=== PATIENT | female | born 1945 | race Caucasian/White ===

== ENCOUNTER → 2017-10-21 | Outpatient (CLI) | payer MEDICARE, OTHER ==
[~2017-10-21] MED LIST: ALEN70TA5 PO; ASPI-496 PO; ESTR0.5T PO; FLUT9.9S NS; HYDR-3237 PO; IBUP-1223 PO; LISI5TAB7 PO; LOSA1TAB19 PO; TIZA4CAP PO
[2017-10-21 11:42] LABS: HEMATOCRIT 44.4 % (34.6-47.8); HEMOGLOBIN 15.3 g/dL (11.7-16.4); WHITE BLOOD COUNT 5.9 x10^3/uL (3.4-10)
[2017-10-21 11:58] LABS: BLOOD UREA NITROGEN 14 mg/dL (7-18)
[2017-10-21 12:03] LABS: ASPARTATE AMINO TRANSFERASE 21 U/L (15-37)
[2017-10-21 12:23] LABS: HIV 1&2 ANTIBODY SCREEN Nonreactive (Nonreactive); HIV-1 p24 ANTIGEN Nonreactive (Nonreactive)
== END | disposition home or self-care (01) ==
LOC: STAR 10:03
PROVIDERS: ATTEND Orthopaedic Surgery
DX: Z01.818 Encounter for other preprocedural examination (principal); M17.12 Unilateral primary osteoarthritis, left knee; R94.31 Abnormal electrocardiogram [ECG] [EKG]; M81.0 Age-related osteoporosis without current pathological fracture; Z79.899 Other long term (current) drug therapy; R79.1 Abnormal coagulation profile
CPT/HCPCS: 36415; 80053; 83036; 85025; 85610; 85730; 86703; 87081; 87899; 93005; G0435

== ENCOUNTER 2017-12-22 11:42 | Emergency (ER) | payer MEDICARE, OTHER ==
[~2017-12-22] VITALS: Ht 166.4 cm; Wt 93.7 kg
[2017-12-22] MEDS ORDERED: LIDOCAINE-MPF 1%, 5ML INFIL ONE (12:00)
[2017-12-22 15:41] VITALS: BP 165/100
[2017-12-23] MEDS ORDERED: ZINC50CA PO (09:56)
[2017-12-23] MEDS ORDERED: focus factor PO (09:56)
[2017-12-23] MEDS ORDERED: VITA150T PO (09:56)
[2017-12-23] MEDS ORDERED: CHOL200024 PO (09:56)
[2017-12-23] MEDS ORDERED: SENN1TAB67 PO (09:56)
[2017-12-23] MEDS ORDERED: POTA99TA3 PO (09:56)
[2017-12-23] MEDS ORDERED: OMEG-123 PO (09:56)
[2017-12-23] MEDS ORDERED: OMEP-110 PO (09:56)
[2017-12-23] MEDS ORDERED: CALC1WAF PO (09:56)
[2017-12-23] MEDS ORDERED: DOXY25TA45 PO (09:56)
[2017-12-23] MEDS ORDERED: VITA400T6 PO (09:56)
[2017-12-23] MEDS ORDERED: SULF1TAB24 PO (10:07)
[2017-12-23] MEDS ORDERED: CEPH-376 PO (10:07)
== END 2017-12-22 15:43 | disposition home or self-care (01) ==
LOC: ED 14:40
DX: L03.311 Cellulitis of abdominal wall (principal); L02.211 Cutaneous abscess of abdominal wall; I10 Essential (primary) hypertension; Z90.710 Acquired absence of both cervix and uterus
CPT/HCPCS: 10060; 99283

== ENCOUNTER → 2017-12-23 | Outpatient (CLI) | payer MEDICARE, OTHER ==
[~2017-12-23] MED LIST changes: +CALC1WAF PO; +CEPH-376 PO; +CHOL200024 PO; +DOXY25TA45 PO; +OMEG-123 PO; +OMEP-110 PO; +POTA99TA3 PO; +SENN1TAB67 PO; +SULF1TAB24 PO; +VITA150T PO; +VITA400T6 PO; +ZINC50CA PO; +focus factor PO
[2017-12-23 10:39] LABS: BASOPHILS # (AUTO) 0.03 x10^3/uL (0-0.1); BASOPHILS % (AUTO) 1 % (0-1); EOSINOPHILS # (AUTO) 0.06 x10^3/uL (0-0.4); EOSINOPHILS % (AUTO) 1 % (1-7); LYMPHOCYTES # (AUTO) 0.89 x10^3/uL (1-3.4); LYMPHOCYTES % (AUTO) 16 % (22-44); MD NO; MEAN CORPUSCULAR HEMOGLOBIN 32.7 pg (27.0-34.8); MEAN CORPUSCULAR HGB CONC 34.8 g/dL (32.4-35.8); MEAN CORPUSCULAR VOLUME 94.1 fL (80-100); MEAN PLATELET VOLUME 7.8 fL (7.4-10.4); MONOCYTES # (AUTO) 0.44 x10^3/uL (0.2-0.8); MONOCYTES % (AUTO) 8 % (2-9); NEUTROPHILS # (AUTO) 4.11 x10^3/uL (1.8-6.8); NEUTROPHILS % (AUTO) 74 % (42-75); PLATELET COUNT 232 x10^3/uL (130-400); RED BLOOD COUNT 4.44 x10^6/uL (3.82-5.3); RED CELL DISTRIBUTION WIDTH 13.1 % (9.6-15.2)
[2017-12-23 10:40] LABS: INTERNATIONAL NORMALIZED RATIO 0.94 (0.93-1.1); PROTHROMBIN TIME 9.7 Seconds (9.6-11.5)
[2017-12-23 10:44] LABS: ALBUMIN 3.9 g/dL (3.4-5.0); ANION GAP 7 mmol/L (5-15); CALCIUM 9.2 mg/dL (8.5-10.1); CHLORIDE 98 mmol/L (98-107)
[2017-12-23 10:48] LABS: ALANINE AMINOTRANSFERASE 27 U/L (12-78); ALKALINE PHOSPHATASE 80 U/L (45-117); BILIRUBIN,TOTAL 0.6 mg/dL (0.2-1.0); CREATININE 0.66 mg/dL (0.55-1.02); TOTAL PROTEIN 7.4 g/dL (6.4-8.2)
[2017-12-23 12:00] LABS: HEMOGLOBIN A1C 5.3 % (4.2-6.3)
== END | disposition home or self-care (01) ==
LOC: STAR 09:16
PROVIDERS: ATTEND Orthopaedic Surgery
DX: Z01.818 Encounter for other preprocedural examination (principal); M17.12 Unilateral primary osteoarthritis, left knee
CPT/HCPCS: 36415; 80053; 83036; 85025; 85610; 85730; 86703; 87081; 87899; G0435

== ENCOUNTER → 2018-02-25 | Outpatient (CLI) | payer MEDICARE, OTHER ==
[2018-02-25 11:06] LABS: BASOPHILS # (AUTO) 0.03 x10^3/uL (0-0.1); BASOPHILS % (AUTO) 1 % (0-1); EOSINOPHILS % (AUTO) 2 % (1-7); LYMPHOCYTES # (AUTO) 1.03 x10^3/uL (1-3.4); LYMPHOCYTES % (AUTO) 19 % (22-44); MD NO; MEAN CORPUSCULAR HEMOGLOBIN 32.4 pg (27.0-34.8); MEAN CORPUSCULAR HGB CONC 34.4 g/dL (32.4-35.8); MEAN CORPUSCULAR VOLUME 94.2 fL (80-100); MEAN PLATELET VOLUME 7.5 fL (7.4-10.4); MONOCYTES # (AUTO) 0.45 x10^3/uL (0.2-0.8); MONOCYTES % (AUTO) 8 % (2-9); NEUTROPHILS # (AUTO) 3.79 x10^3/uL (1.8-6.8); NEUTROPHILS % (AUTO) 70 % (42-75); PLATELET COUNT 268 x10^3/uL (130-400); RED BLOOD COUNT 4.44 x10^6/uL (3.82-5.3); RED CELL DISTRIBUTION WIDTH 12.8 % (9.6-15.2)
[2018-02-25 11:09] LABS: CULTURE INDICATED? NO; MICROSCOPIC NOT IND
[2018-02-25 11:13] LABS: INTERNATIONAL NORMALIZED RATIO 0.94 (0.93-1.1); PROTHROMBIN TIME 9.7 Seconds (9.6-11.5)
[2018-02-25 11:17] LABS: ALBUMIN 3.9 g/dL (3.4-5.0); ANION GAP 6 mmol/L (5-15); CALCIUM 9.3 mg/dL (8.5-10.1); CHLORIDE 100 mmol/L (98-107)
[2018-02-25 11:19] LABS: ALANINE AMINOTRANSFERASE 30 U/L (12-78); ALKALINE PHOSPHATASE 64 U/L (45-117); BILIRUBIN,TOTAL 0.9 mg/dL (0.2-1.0); CREATININE 0.59 mg/dL (0.55-1.02); TOTAL PROTEIN 7.5 g/dL (6.4-8.2)
[2018-02-25 12:07] LABS: HEMOGLOBIN A1C 5.3 % (4.2-6.3)
== END ==
LOC: STAR 10:00
PROVIDERS: ATTEND Orthopaedic Surgery
DX: R94.31 Abnormal electrocardiogram [ECG] [EKG] (principal); M17.11 Unilateral primary osteoarthritis, right knee
CPT/HCPCS: 36415; 80053; 81003; 83036; 85025; 85610; 85730; 87081; 87806; 93005; G0475

== ENCOUNTER 2018-03-08 09:34 | Inpatient (IN) | payer MEDICARE, OTHER ==
[2018-02-25 10:36] VITALS: BP 152/94
[~2018-03-08] VITALS: Ht 166.4 cm; Wt 98.1 kg
[~2018-03-08 09:34] MED LIST changes: +CEFAZOLIN 1,000 MG ONE; +DEXAMETHASONE 4 MG/ML, 1ML ONE; +EPINEPHRINE 1 MG/ML, 1ML ONE; +FENTANYL PF 250 MCG/5ML ONE; +GLYCOPYRROLATE 0.4 MG/2 ML, 2ML ONE; +KETOROLAC 60 MG/2 ML ONE; +MIDAZOLAM 1 MG/ML, 2ML ONE; +NEOSTIGMINE 1 MG/ML, 10ML ONE; +PROPOFOL 10 MG/ML, 20ML ONE; +ROCURONIUM 10MG/ML,5ML ONE; +ROPIvacaine/PF 0.2%, 20 ML ONE; +SODIUM CHLORIDE 0.9% 100 ML ONE; +TRANEXAMIC ACID 100 MG/ML, 10ML ONE; +VANCOMYCIN 1,000 MG ONE; +WATER-INJECTION,STERILE 10 ML IV ONE
[2018-03-08] MEDS ORDERED: VANCOMYCIN PER PHARMACY MC ONE (09:40)
[2018-03-08] MEDS ORDERED: LACTATED RINGERS 1,000 ML IV SCH (09:47)
[2018-03-08] MEDS ORDERED: GABAPENTIN 300 MG CAPSULE PO ONE (10:00)
[2018-03-08] MEDS ORDERED: ACETAMINOPHEN 500 MG TABLET PO ONE (10:00)
[2018-03-08] MEDS ORDERED: ONDANSETRON ODT 8 MG PO ONE (10:00)
[2018-03-08] MEDS ORDERED: OxyconTIN ER 10 MG TAB.ER PO ONE (10:00)
[2018-03-08] MEDS ORDERED: LIDOCAINE-MPF 1%, 2ML INFIL ONE (10:00)
[2018-03-08] MEDS ORDERED: VANCOMYCIN 1,700 MG in SODIUM CHLORIDE 0.9% 250 ML IV ONE (10:30)
[2018-03-08] MEDS ORDERED: KETOROLAC 60 MG/2 ML ONE (11:24)
[2018-03-08] MEDS ORDERED: TRANEXAMIC ACID 100 MG/ML, 10ML ONE ×4 (11:24)
[2018-03-08] MEDS ORDERED: ROPIvacaine/PF 0.2%, 20 ML ONE (11:24)
[2018-03-08] MEDS ORDERED: VANCOMYCIN 1,000 MG ONE (11:25)
[2018-03-08] MEDS ORDERED: SODIUM CHLORIDE 0.9% 100 ML ONE (11:25)
[2018-03-08] MEDS ORDERED: EPINEPHRINE 1 MG/ML, 1ML ONE (11:25)
[2018-03-08] MEDS ORDERED: PROMETHAZINE 12.5 MG SUPP PR PRN (11:30)
[2018-03-08] MEDS ORDERED: LABETALOL 5MG/ML, 20ML IV PRN (11:30)
[2018-03-08] MEDS ORDERED: MEPERIDINE/PF 25MG/0.5ML IVPush PRN (11:30)
[2018-03-08] MEDS ORDERED: HYDROmorphone 1 MG/ML, 1ML IV PRN ×2 (11:30→12:00)
[2018-03-08] MEDS ORDERED: morphine SULFATE 10 MG/ML, 1ML IV PRN (11:30)
[2018-03-08] MEDS ORDERED: PROMETHAZINE 25 MG/ML, 1ML IV PRN (11:30)
[2018-03-08] MEDS ORDERED: ONDANSETRON 2MG/ML, 2ML IVPush PRN (11:30)
[2018-03-08] MEDS ORDERED: OXYcodone 5 MG/5 ML ORAL.SOL UDC PO PRN (11:30)
[2018-03-08] MEDS ORDERED: hydrALAzine 20 MG/ML, 1ML IV PRN (11:30)
[2018-03-08] MEDS ORDERED: ACETAMINOPHEN 650 MG/20.3 ML UDC PO PRN (12:00)
[2018-03-08] MEDS ORDERED: ONDANSETRON 2MG/ML, 2ML IV PRN (12:00)
[2018-03-08] MEDS ORDERED: ALUMINUM/MAG/SIMETHICONE 30 ML UDC PO PRN (12:00)
[2018-03-08] MEDS ORDERED: SENNA/DOCUSATE TABLET PO PRN (12:00)
[2018-03-08] MEDS ORDERED: MAGNESIUM HYDROXIDE 8%, 30ML UDC PO PRN (12:00)
[2018-03-08] MEDS ORDERED: ONDANSETRON 4 MG TABLET PO PRN (12:00)
[2018-03-08] MEDS ORDERED: DIPHENHYDRAMINE 25 MG CAPSULE PO PRN (12:00)
[2018-03-08] MEDS ORDERED: DIAZEPAM 5 MG TABLET PO PRN (12:00)
[2018-03-08] MEDS ORDERED: FENTANYL PF 100 MCG/2ML ONE ×2 (12:13→14:12)
[2018-03-08] MEDS ORDERED: LABETALOL 5MG/ML, 20ML ONE (12:30)
[2018-03-08] MEDS ORDERED: TRANEXAMIC ACID 1,000 MG in SODIUM CHLORIDE 0.9% 100 ML IVPB ONE (13:30)
[2018-03-08] MEDS ORDERED: OXYcodone 5 MG/5 ML ORAL.SOL UDC ONE (14:13)
[2018-03-08] MEDS: FENTANYL PF 100 MCG/2ML IV PRN ×2 (14:15→14:38)
[2018-03-08] MEDS: D5%-0.45NACL+KCL 20MEQ 1,000 ML IV SCH (16:43)
[2018-03-08] MEDS: CEFAZOLIN PMX 1GM/50ML 50 ML IVPB SCH (20:10)
[2018-03-08 20:26] VITALS: BP 111/75
[2018-03-08] MEDS: DOCUSATE 100 MG CAPSULE PO SCH (20:37)
[2018-03-08] MEDS: OXYcodone IR 5MG TABLET PO PRN (22:27)
[2018-03-08] MEDS ORDERED: VANCOMYCIN PMX 1GM/200ML 200 ML IVPB SCH (22:30)
[2018-03-09 00:10] VITALS: BP 103/59
[2018-03-09] MEDS: D5%-0.45NACL+KCL 20MEQ 1,000 ML IV SCH (02:35)
[2018-03-09] MEDS: CEFAZOLIN PMX 1GM/50ML 50 ML IVPB SCH (04:04)
[2018-03-09] MEDS: OXYcodone IR 5MG TABLET PO PRN ×2 (04:04→08:13)
[2018-03-09 04:08] VITALS: BP 119/73
[2018-03-09] MEDS ORDERED: DEXAMETHASONE 4 MG/ML, 1ML IVPush SCH (06:00)
[2018-03-09] MEDS ORDERED: ASPIRIN 81 MG TABLET EC PO SCH (06:00)
[2018-03-09 07:34] VITALS: BP 145/85
[2018-03-09] MEDS: DOCUSATE 100 MG CAPSULE PO SCH (08:13)
[2018-03-09] MEDS ORDERED: TAMSULOSIN 0.4 MG CAP.ER.24H PO SCH (09:00)
[2018-03-09] MEDS ORDERED: ASPI-515 PO (09:32)
[2018-03-09] MEDS ORDERED: ONDA4TAB10 PO (09:34)
[2018-03-09] MEDS ORDERED: DOCU-131 PO (09:35)
[2018-03-09] MEDS ORDERED: CELE200C PO (09:36)
[2018-03-09] MEDS ORDERED: TRAM50TA2 PO (09:37)
[2018-03-09] MEDS ORDERED: DIAZ5TAB4 PO (09:39)
[2018-03-09] MEDS ORDERED: OXYC5TAB3 PO (09:45)
[2018-03-09] MEDS ORDERED: KETOROLAC 30 MG/1 ML IV SCH (12:00)
== END 2018-03-09 11:20 | disposition home or self-care (01) | DRG 470 ==
LOC: ORIP 09:34 → 4NOR 15:00 → DCLOUNGE 03-09 10:52
PROVIDERS: ADMIT Orthopaedic Surgery; ATTEND Orthopaedic Surgery
PROC: 0SRC069 Replacement of Right Knee Joint with Oxidized Zirconium on Polyethylene Synthetic Substitute, Cemented, Open Approach (ICD-10-PCS; principal; 2018-03-08 11:30)
DX: M17.11 Unilateral primary osteoarthritis, right knee (principal); Z91.048 Other nonmedicinal substance allergy status
CPT/HCPCS: 36415; 85014; 85018; C1713; J0171; J0690; J1100; J1885; J2250; J2704; J2710; J2795; J3010; J3370; Q0162; C1776; J3480; J7050; J7120

== ENCOUNTER → 2018-04-19 | Outpatient (CLI) | payer MEDICARE, OTHER ==
[~2018-04-19] MED LIST changes: +ASPI-515 PO; -CEFAZOLIN 1,000 MG ONE; +CELE200C PO; -DEXAMETHASONE 4 MG/ML, 1ML ONE; +DIAZ5TAB4 PO; +DOCU-131 PO; -EPINEPHRINE 1 MG/ML, 1ML ONE; -FENTANYL PF 250 MCG/5ML ONE; -GLYCOPYRROLATE 0.4 MG/2 ML, 2ML ONE; +IBUP-1221 PO; -KETOROLAC 60 MG/2 ML ONE; -MIDAZOLAM 1 MG/ML, 2ML ONE; -NEOSTIGMINE 1 MG/ML, 10ML ONE; +OMEG-172 PO; +ONDA4TAB10 PO; +OXYC5TAB3 PO; -PROPOFOL 10 MG/ML, 20ML ONE; -ROCURONIUM 10MG/ML,5ML ONE; -ROPIvacaine/PF 0.2%, 20 ML ONE; -SODIUM CHLORIDE 0.9% 100 ML ONE; +TRAM50TA2 PO; -TRANEXAMIC ACID 100 MG/ML, 10ML ONE; -VANCOMYCIN 1,000 MG ONE; -WATER-INJECTION,STERILE 10 ML IV ONE
[2018-04-19 10:16] LABS: BASOPHILS # (AUTO) 0.01 x10^3/uL (0-0.1); BASOPHILS % (AUTO) 0 % (0-1); EOSINOPHILS # (AUTO) 0.05 x10^3/uL (0-0.4); EOSINOPHILS % (AUTO) 1 % (1-7); LYMPHOCYTES # (AUTO) 0.77 x10^3/uL (1-3.4); LYMPHOCYTES % (AUTO) 11 % (22-44); MD NO; MEAN CORPUSCULAR HEMOGLOBIN 31.4 pg (27.0-34.8); MEAN CORPUSCULAR HGB CONC 33.5 g/dL (32.4-35.8); MEAN CORPUSCULAR VOLUME 93.9 fL (80-100); MEAN PLATELET VOLUME 7.8 fL (7.4-10.4); MONOCYTES # (AUTO) 0.37 x10^3/uL (0.2-0.8); MONOCYTES % (AUTO) 5 % (2-9); NEUTROPHILS # (AUTO) 5.56 x10^3/uL (1.8-6.8); NEUTROPHILS % (AUTO) 82 % (42-75); PLATELET COUNT 310 x10^3/uL (130-400); RED BLOOD COUNT 4.73 x10^6/uL (3.82-5.3); RED CELL DISTRIBUTION WIDTH 14.3 % (9.6-15.2)
[2018-04-19 10:17] LABS: MICROSCOPIC NOT IND
[2018-04-19 10:19] LABS: CULTURE INDICATED? NO
[2018-04-19 10:24] LABS: INTERNATIONAL NORMALIZED RATIO 0.93 (0.93-1.1); PROTHROMBIN TIME 9.6 Seconds (9.6-11.5)
[2018-04-19 10:28] LABS: ALANINE AMINOTRANSFERASE 33 U/L (12-78); ALBUMIN 4.3 g/dL (3.4-5.0); ANION GAP 8 mmol/L (5-15); CALCIUM 9.8 mg/dL (8.5-10.1); CHLORIDE 99 mmol/L (98-107); CREATININE 0.61 mg/dL (0.55-1.02)
[2018-04-19 10:30] LABS: ALKALINE PHOSPHATASE 101 U/L (45-117); BILIRUBIN,TOTAL 0.9 mg/dL (0.2-1.0); TOTAL PROTEIN 8.1 g/dL (6.4-8.2)
[2018-04-19 10:38] LABS: HEMOGLOBIN A1C 5.1 % (4.2-6.3)
== END ==
LOC: STAR 09:20
PROVIDERS: ATTEND Orthopaedic Surgery
DX: M17.10 Unilateral primary osteoarthritis, unspecified knee (principal); R79.89 Other specified abnormal findings of blood chemistry; Z96.653 Presence of artificial knee joint, bilateral
CPT/HCPCS: 36415; 80053; 81003; 83036; 85025; 85610; 85730; 87081; 87806; G0475

== ENCOUNTER 2018-04-26 07:23 | Inpatient (IN) | payer MEDICARE, OTHER ==
[~2018-04-26] VITALS: Ht 165.1 cm; Wt 92.4 kg
[~2018-04-26 07:23] MED LIST changes: +EPINEPHRINE 1 MG/ML, 1ML ONE; +KETOROLAC 60 MG/2 ML ONE; +ROPIvacaine/PF 0.2%, 20 ML ONE; +TRANEXAMIC ACID 100 MG/ML, 10ML ONE
[2018-04-26] MEDS ORDERED: VANCOMYCIN 1,700 MG in SODIUM CHLORIDE 0.9% 250 ML IV ONE (08:30)
[2018-04-26] MEDS ORDERED: VANCOMYCIN PER PHARMACY MC PRN (08:30)
[2018-04-26] MEDS ORDERED: GABAPENTIN 300 MG CAPSULE PO ONE (08:30)
[2018-04-26] MEDS ORDERED: ACETAMINOPHEN 500 MG TABLET PO ONE (08:30)
[2018-04-26 08:35] VITALS: BP 165/91
[2018-04-26] MEDS: LACTATED RINGERS 1,000 ML IV SCH ×2 (08:37→13:18)
[2018-04-26] MEDS ORDERED: FENTANYL PF 250 MCG/5ML ONE (08:43)
[2018-04-26] MEDS ORDERED: MIDAZOLAM 1 MG/ML, 2ML ONE (08:43)
[2018-04-26] MEDS ORDERED: SENNA/DOCUSATE TABLET PO PRN (09:30)
[2018-04-26] MEDS ORDERED: HYDROmorphone 1 MG/ML, 1ML IV PRN ×2 (09:30→11:30)
[2018-04-26] MEDS ORDERED: DIPHENHYDRAMINE 25 MG CAPSULE PO PRN (09:30)
[2018-04-26] MEDS ORDERED: ONDANSETRON 4 MG TABLET PO PRN (09:30)
[2018-04-26] MEDS ORDERED: MAGNESIUM HYDROXIDE 8%, 30ML UDC PO PRN (09:30)
[2018-04-26] MEDS ORDERED: ONDANSETRON 2MG/ML, 2ML IV PRN (09:30)
[2018-04-26] MEDS ORDERED: DIAZEPAM 5 MG TABLET PO PRN (09:30)
[2018-04-26] MEDS ORDERED: ALUMINUM/MAG/SIMETHICONE 30 ML UDC PO PRN (09:30)
[2018-04-26] MEDS ORDERED: ONDANSETRON 2MG/ML, 2ML ONE (09:39)
[2018-04-26] MEDS ORDERED: PROPOFOL 10 MG/ML, 20ML ONE (09:39)
[2018-04-26] MEDS ORDERED: DEXAMETHASONE 4 MG/ML, 1ML ONE (09:39)
[2018-04-26] MEDS ORDERED: CEFAZOLIN 1,000 MG ONE (09:39)
[2018-04-26] MEDS ORDERED: KETOROLAC 60 MG/2 ML ONE (10:14)
[2018-04-26] MEDS ORDERED: ROPIvacaine/PF 0.2%, 20 ML ONE (10:15)
[2018-04-26] MEDS ORDERED: EPINEPHRINE 1 MG/ML, 1ML ONE (10:15)
[2018-04-26] MEDS ORDERED: OXYcodone 5 MG/5 ML ORAL.SOL UDC ONE (11:18)
[2018-04-26] MEDS ORDERED: FENTANYL PF 100 MCG/2ML ONE (11:18)
[2018-04-26] MEDS: FENTANYL PF 100 MCG/2ML IV PRN ×2 (11:21→11:38)
[2018-04-26] MEDS ORDERED: hydrALAzine 20 MG/ML, 1ML IV PRN (11:30)
[2018-04-26] MEDS ORDERED: TRANEXAMIC ACID 1,000 MG in SODIUM CHLORIDE 0.9% 100 ML IVPB ONE (11:30)
[2018-04-26] MEDS ORDERED: MEPERIDINE/PF 25MG/0.5ML IVPush PRN (11:30)
[2018-04-26] MEDS ORDERED: LABETALOL 5MG/ML, 20ML IV PRN (11:30)
[2018-04-26] MEDS ORDERED: OXYcodone 5 MG/5 ML ORAL.SOL UDC PO PRN (11:30)
[2018-04-26] MEDS ORDERED: LORazepam 2 MG/ML, 1ML IVPush PRN (11:30)
[2018-04-26] MEDS ORDERED: ALBUTEROL SULFATE 2.5 MG/3 ML NPPB PRN (11:30)
[2018-04-26] MEDS ORDERED: PROMETHAZINE 25 MG/ML, 1ML IV PRN (11:30)
[2018-04-26 13:02] VITALS: BP 144/88
[2018-04-26] MEDS: D5%-0.45NACL+KCL 20MEQ 1,000 ML IV SCH ×2 (13:19→22:30)
[2018-04-26 13:30] VITALS: BP 143/90
[2018-04-26] MEDS: ASPIRIN 81 MG TABLET EC PO SCH (16:52)
[2018-04-26] MEDS: TIZANIDINE 4MG TABLET PO SCH ×2 (16:52→21:29)
[2018-04-26] MEDS: CEFAZOLIN PMX 1GM/50ML 50 ML IVPB SCH (16:53)
[2018-04-26 19:26] VITALS: BP 93/57
[2018-04-26] MEDS ORDERED: DOXYLAMINE 25MG TABLET PO SCH (21:00)
[2018-04-26] MEDS: DOCUSATE 100 MG CAPSULE PO SCH (21:29)
[2018-04-26] MEDS: OXYcodone IR 5MG TABLET PO PRN (23:04)
[2018-04-26 23:34] VITALS: BP 113/75
[2018-04-27] MEDS: CEFAZOLIN PMX 1GM/50ML 50 ML IVPB SCH (01:23)
[2018-04-27 03:26] VITALS: BP 134/82
[2018-04-27] MEDS: OXYcodone IR 5MG TABLET PO PRN ×3 (03:38→11:23)
[2018-04-27] MEDS ORDERED: DEXAMETHASONE 4 MG/ML, 1ML IVPush SCH (06:00)
[2018-04-27] MEDS: ASPIRIN 81 MG TABLET EC PO SCH (06:28)
[2018-04-27 07:13] VITALS: BP 123/75
[2018-04-27] MEDS ORDERED: OMEPRAZOLE 20 MG CAPSULE.DR PO SCH (07:30)
[2018-04-27] MEDS: DOCUSATE 100 MG CAPSULE PO SCH (07:42)
[2018-04-27] MEDS: TIZANIDINE 4MG TABLET PO SCH (07:42)
[2018-04-27] MEDS: D5%-0.45NACL+KCL 20MEQ 1,000 ML IV SCH (07:42)
[2018-04-27] MEDS ORDERED: LOSARTAN 50MG TABLET PO SCH (09:00)
[2018-04-27] MEDS ORDERED: TAMSULOSIN 0.4 MG CAP.ER.24H PO SCH (09:00)
[2018-04-27] MEDS ORDERED: HYDROCHLOROTHIAZIDE 12.5 MG CAPSULE PO SCH (09:00)
[2018-04-27] MEDS ORDERED: KETOROLAC 30 MG/1 ML IV SCH (18:30)
== END 2018-04-27 11:50 | disposition home or self-care (01) | DRG 470 ==
LOC: OUT 07:23 → ORIP 09:14 → 4NOR 12:15 → DCLOUNGE 04-27 11:37
PROVIDERS: ADMIT Orthopaedic Surgery; ATTEND Orthopaedic Surgery
PROC: 0SRD069 Replacement of Left Knee Joint with Oxidized Zirconium on Polyethylene Synthetic Substitute, Cemented, Open Approach (ICD-10-PCS; principal; 2018-04-26 09:30)
DX: M17.12 Unilateral primary osteoarthritis, left knee (principal); Z88.8 Allergy status to other drugs, medicaments and biological substances
CPT/HCPCS: 36415; 85014; 85018; C1713; J0171; J0690; J1100; J1885; J2250; J2405; J2704; J2795; J3010; J3370; C1776; J3480; J7050; J7120